=== PATIENT | male | born 1950 | race Two or more races ===

== ENCOUNTER 2021-07-04 07:49 | Emergency (ER) | payer SELFPAY ==
[~2021-07-04] VITALS: Ht 160 cm; Wt 72.1 kg
--- NOTE | 2021-07-04 08:01 | NUR ---
BIB RA60 FOUND IN THE MIDDLE OF THE STRE[address] FOR POSSIBLE ALCOHOL DRINKING. DENIES DRINKING BUT SMELLS LIKE ALCOHOL. A&O TO PERSON. SLOW TO SPEECH. STREGTH 4/5 IN UPPER AN DLOWER EXTREMITIES. NO FACIAL DROOP. ASSISTED TO ER BED 13.
--- NOTE | 2021-07-04 09:06 | NUR ---
URINE COLLECTED AND SENT TO LAB
[2021-07-04 09:09] LABS: BASOPHILS % (AUTO) 0.2 % (0.0-2.0); EOSINOPHILS % (AUTO) 0.2 % (0.0-6.0); HEMATOCRIT 41 % (39-51); HEMOGLOBIN 13.6 g/dL (13.5-17.5); LYMPHOCYTES # (AUTO) 0.6 K/uL (0.8-4.8); LYMPHOCYTES % (AUTO) 8.4 % (20.0-44.0); MEAN CORPUSCULAR HGB CONC 33 g/dl (31.0-36.0); MEAN CORPUSCULAR VOLUME 97 fL (80-96); MONOCYTES # (AUTO) 0.4 K/uL (0.1-1.30); MONOCYTES % (AUTO) 5.9 % (2.0-12.0); NEUTROPHILS % (AUTO) 85.3 % (43.0-81.0); PLATELET COUNT (AUTO) 132 K/uL (150-450); RED BLOOD CELL COUNT(AUTO) 4.21 MIL/uL (4.5-6.0)
[2021-07-04 09:37] LABS: BILIRUBIN,URINE NEGATIVE (NEGATIVE); COLOR,URINE YELLOW (YELLOW); LEUKOCYTE ESTERASE ,URINE NEGATIVE (NEGATIVE); NITRITE, URINE NEGATIVE (NEGATIVE); PROTEIN,URINE 30 mg/dl (NEGATIVE); UGLUCOSE NEGATIVE (NEGATIVE); UROBILINOGEN,URINE 0.2 EU/dL (0.2)
[2021-07-04 10:04] LABS: ALBUMIN 3.8 g/dL (3.4-5.0); BILIRUBIN,DIRECT 0.1 mg/dL (0.0-0.2); BILIRUBIN,TOTAL 0.2 mg/dL (0.2-1.0); CALCIUM, SERUM 8.2 mg/dL (8.5-10.1); CREATININE 0.7 mg/dL (0.6-1.3); TOTAL PROTEIN, SERUM 7.9 g/dL (6.4-8.2)
--- NOTE | 2021-07-04 10:45 | NUR ---
"SS Consult: SS Consult requested for homelessness & alcohol abuse. The pt. is a 71-year-old [place]oc[place] male patient currently in ED BIBRA due to pt. standing in the middle of the road possibly intoxicated and smelled of alcohol per EMR. Upon SS consult, the pt. is A&O x 3 and makes appropriate eye contact. The pt. appears disheveled, mal odorous and presents with a euthymic mood and affect. The pt. presents with a normal thought process and was cooperative with SW. TWYLA explored pt.s living situation. Per the pt., he has been experiencing homelessness for the past year. Per pt. his 1 year ago and he was then kicked out of his apartment by the esthetician/owner. Pt. stated he tends to stay around the [facility]. TWYLA explored pt.s drug & ETOH use. Pt. denies using drugs and admits to drinking liquor daily. SW provided addiction counseling and offered rehab. However, pt. states he lindo not believe alcohol is a problem for him and refused rehab placement. TWYLA explored pt.s mental health Hx. Per the pt., she has never been diagnosed with a mental illness and is not taking any psychotropic medications. Pt. denies current SI/HI and denies current hallucinations. Pt. states he receives food stamps. Per pt. he is independent with all his ADLs. TWYLA explored pt.s support system. Pt. states he has a sister that lives on [facility]. Plan: SW offered pt. senior living placement and pt. refused stating that he has lived in the [facility] for a long time and would like to be discharged to self. TWYLA provided pt. with TAP card and he accepted it. Pt. signed homeless waiver & it was placed in the pt.s chart. TWYLA provided homeless resources to pt. and he accepted them. Year-round shelters: [facility] [place] [address] [place] [address] ; [facility] [place] [address] [place] [address]; [facility] [address] [facility] [address] Winter Shelters: SPA 2 | [facility] Delisa: [facility] [place] Address: Confidential (call for location ) Population Served: Coed # of Beds: 57 SPA 4 | [facility] Provider: [facility] Last Address: [address] [facility], [address] # of Beds: 49 Population Served: Coed SPA 6 | [facility] Provider: [facility] Last Address: [address] [facility], [address] # of Beds: 49 Population Served: Coed Luis [facility] Provider: Stephen Marinelli ORD Address: [address] [facility] [address] # of Beds: 20 Population Served: Women MARGIE Facility Provider: [facility] Last Address: [address] [facility] [address] # of Beds: 30 Population Served: Women SPA 8 | [facility] Provider: Nate head [place] Address: [address] [facility] [address] # of Beds: 65 Population Served: Coed Hygiene: [facility]: [address] [facility] ; [facility] [address] [facility] ; [facility] [address] [facility] . Food Resources: [place] [facility] at [facility]- [address] [facility]; Meet Each Need with Dignity ([facility]) [address] [facility]; [facility] [address] [facility]; [facility] [address] [facility]. Mental Health resources provided: [facility] [address] [place] [address] ; [facility] [address] [facility] [address], [place] [address] ; [facility] [address] [place] [address] ; [facility] [place], [place] [phone] Healthcare Clinics: [facility] [address], [address] [place]. [place] ; [facility] [address] [facility] [address] [place] [address]; [facility] [address] [address] [facility]. [place] [phone] Counseling--Outpatient [facility] [address], [place] [address] (Specializes in in-depth psychotherapy for emotional distress: anxiety, depression, interpersonal conflicts, life transitions, childhood abuse) [facility] [address] [place] [address] (Assist with solving problem marital difficulties, separation & divorce, aging parents, & grief, chronic & terminal illness) [facility] [address] [place] [address] (Deal with loss & grief, anxiety, marital difficulties) Homebound/Mental Health Services [address] [place], [place] [id number] (Provide in-home mental services to people who are incapable of leaving their homes) [facility] Senior Service/[facility] Center [address] [place] [address] [facility] [address] [place], [place] [phone] PSYCHIATRIC OUTPATIENT SERVICES [facility] Partial Hospitalization and Intensive Outpatient Program (Managed Care and [place] Only)[address] [address] Verg[address]. [facility] [phone] [facility] Partial Hospitalization and Outpatient [id number] [place], [place] [phone] MAN VIVIEN [facility] [place] [address] [place], [place] [phone] [facility] Kelly Partial Hospitalization and Outpatient [id number] Sergio Palacios, [phone] Substance Abuse resources provided included: [facility] Substance Abuse Self-Helpline ([facility]) ; [facility] [address] [facility] [place] [phone] ; [facility] [place] [address] [facility] [address] ; [facility] Rehabilitation [facility] [address] [facility] [address] ; [facility] [address] [facility] [phone] ; [facility] [address] [facility] [address] ; [facility] [address] [facility] [phone] ; [facility] Substance Abuse Helpline([facility])-[facility] ; [facility] ; [facility]; [facility]; [facility] [place]; [facility] [place]; [facility] [place]; [place]; [facility] [place]; [facility]; Alcoholics Anonymous -[facility]; [facility] ; Marijuana Anonymous [facility]; Narcotics Anonymous [email or web address];"
[2021-07-04 10:51] LABS: POTASSIUM 3.8 mmol/L (3.5-5.1)
--- NOTE | 2021-07-04 11:03 | NUR ---
Patient given written and verbal discharge instructions. Patient verbalizes understanding of instructions. Patient is ambulatory with steady gait. Refuses offer of prison placement. Patient given list of available shelters in surrounding area.Patient discharged in stable condition. Written and verbal after care instructions given. Patient verbalizes understanding of instruction.
[2021-07-04 11:04] VITALS: BP 131/72
[2021-07-04 11:37] LABS: BACTERIA,URINE None seen /HPF (None Seen); SQUAMOUS EPITHELIAL CELL,UR Rare /HPF (None Seen); WBC,URINE 0-2 /HPF (0-3)
== END 2021-07-04 11:04 | disposition home or self-care (01) ==
LOC: ER 07:54
DX: F10.10 Alcohol abuse, uncomplicated (principal); Y90.9 Presence of alcohol in blood, level not specified
CPT/HCPCS: 36415; 70450-TC; 80048-TC; 80076-TC; 81001; 85025-TC; G0480

== ENCOUNTER 2022-04-27 08:19 | Emergency (ER) | payer SELFPAY ==
[~2022-04-27] VITALS: Ht 167.6 cm; Wt 73.0 kg
--- NOTE | 2022-04-27 08:45 | NUR ---
assume patient care, bibra from the streets for alcohol intoxication. pt is awake, stanish speaking. verbally responsive. denies any discomfort. vss. dr jiang at bedside for eval.
--- NOTE | 2022-04-27 10:00 | NUR ---
pt awake, ambulatory w/ steady gait. provided w/ meal tray and requested to be discharged. dr jiang made aware. d/c home in stable condition.
[2022-04-27 10:55] VITALS: BP 145/84
== END 2022-04-27 10:00 | disposition home or self-care (01) ==
LOC: ER 08:23
DX: F10.129 Alcohol abuse with intoxication, unspecified (principal); Y90.9 Presence of alcohol in blood, level not specified